=== PATIENT | female | born 1955 | race Caucasian/White ===

== ENCOUNTER 2018-03-08 12:54 | Inpatient (IN) | payer BC ==
[~2018-03-08] VITALS: Ht 167.6 cm; Wt 99.6 kg
[2018-03-22] VITALS (12 sets, daily range): BP systolic 112–153; BP diastolic 51–71; PULSE 56–92; TEMP 97.4–98.6
[2018-03-22] MEDS ORDERED: VENTOLIN0.09 MG IH (08:44)
[2018-03-22] MEDS ORDERED: 00186-0372-20 IH (08:45)
[2018-03-22] MEDS ORDERED: PERCOCET 325 MG1 TA2 PO (08:46)
[2018-03-22] MEDS ORDERED: SYNTHROID 0.10.15 MG PO (08:47)
[2018-03-22] MEDS ORDERED: NEURONTIN600 MG/TAB PO (08:47)
[2018-03-22] MEDS ORDERED: UNIPHYL 400MG400 MG PO (08:49)
[2018-03-22] MEDS ORDERED: ALBUTEROL0.83 MG/ML IH (08:50)
[2018-03-22] MEDS ORDERED: LEXAPRO20 MG PO (08:52)
[2018-03-22] MEDS ORDERED: ASPIRIN E.C. 8181 MG PO (08:52)
[2018-03-23 02:00] VITALS: BP 118/58; PULSE 54; TEMP 98.3
[2018-03-23 05:04] VITALS: BP 116/65; PULSE 51; TEMP 98
[2018-03-23 06:22] LABS: HEMATOCRIT 43.3 % (37.0-47.0)
[2018-03-23 06:34] LABS: CREATININE, serum 0.92 mg/dL (0.52-1.25); POTASSIUM 4.3 mmol/L (3.4-5.0)
[2018-03-23 10:27] VITALS: BP 114/56; PULSE 54; TEMP 98.2
[2018-03-23 13:40] VITALS: BP 124/56; PULSE 56; TEMP 97.8
[2018-03-23 17:07] VITALS: BP 1323/60; PULSE 58; TEMP 97.7
[2018-03-23 21:38] VITALS: BP 122/54; PULSE 73; TEMP 98.2
[2018-03-24 01:33] VITALS: BP 126/54; PULSE 92; TEMP 97.4
[2018-03-24 05:03] VITALS: BP 107/68; PULSE 73; TEMP 98.2
[2018-03-24 09:03] VITALS: BP 129/59; PULSE 87; TEMP 100
[2018-03-24 13:28] VITALS: BP 103/59; PULSE 81; TEMP 98.6
[2018-03-24 17:25] VITALS: BP 121/69; PULSE 16; TEMP 100.5
[2018-03-24 21:35] VITALS: BP 134/54; PULSE 100; TEMP 100.6
[2018-03-25] VITALS (7 sets, daily range): BP systolic 123–140; BP diastolic 57–72; PULSE 83–101; TEMP 98.6–100.2
[2018-03-25 11:34] LABS: HEMATOCRIT 42.2 % (37.0-47.0); HEMOGLOBIN 13.8 g/dl (12.5-16.0); MEAN CELL VOLUME 92 fl (80.0-100.0); MEAN CORPUSCULAR HEMOGLOBIN 30 pg (27.0-31.0); MEAN CORPUSCULAR HGB CONC 33 g/dl (33.0-37.0); MEAN PLATELET VOLUME 10.4 fl (7.4-10.4); PLATELET COUNT 154 K/mm3 (130-400); RED BLOOD COUNT 4.61 M/mm3 (4.10-5.30); REDCELL DISTRIBUTION WIDTH-CV 15.8 % (11.5-14.5)
[2018-03-25 12:07] LABS: BAND 44 % (0-10); LYMPHOCYTE 4 % (20.0-51.0); METAMYELOCYTE 1 % (0-0); MYELOCYTE 1 % (0-0); NEUTROPHILS 48 % (42.0-75.2); PLATELET ESTIMATE NORMAL (NORMAL)
[2018-03-26 02:13] VITALS: BP 137/58; PULSE 80; TEMP 99.6
[2018-03-26 05:53] VITALS: BP 132/75; PULSE 77; TEMP 98.6
[2018-03-26 07:38] LABS: BASO % 0.1 % (0.0-2.0); EOS # 0.1 (0.0-0.7); EOS % 0.4 % (0-4.0); GRAN # 12.9 (1.4-6.5); GRAN % 86.3 % (42.2-75.2); HEMOGLOBIN 12.1 g/dl (12.5-16.0); LYMPH # 0.8 (1.2-3.4); LYMPH % 5.2 % (20.0-51.0); MEAN CELL VOLUME 91 fl (80.0-100.0); MEAN CORPUSCULAR HEMOGLOBIN 30 pg (27.0-31.0); MEAN CORPUSCULAR HGB CONC 33 g/dl (33.0-37.0); MEAN PLATELET VOLUME 11.3 fl (7.4-10.4); MONO # 1.1 (0.1-0.6); MONO % 7.6 % (1.7-9.3); PLATELET COUNT 138 K/mm3 (130-400); RED BLOOD COUNT 4.07 M/mm3 (4.10-5.30); REDCELL DISTRIBUTION WIDTH-CV 15.9 % (11.5-14.5)
[2018-03-26 07:46] LABS: CALCIUM 8.9 mg/dL (8.4-10.2); CREATININE, serum 0.8 mg/dL (0.52-1.25); POTASSIUM 3.8 mmol/L (3.4-5.0)
[2018-03-26 09:50] VITALS: BP 119/55; PULSE 87; TEMP 98.7
[2018-03-26 13:44] VITALS: BP 122/62; PULSE 82; TEMP 98.5
[2018-03-26] MEDS ORDERED: CIPRO 500MG TA500 MG PO (17:00)
[2018-03-26] MEDS ORDERED: FLAGYL500 MG PO (17:01)
[2018-03-26] MEDS ORDERED: PERCOCET 325 MG1 TA2 PO (17:02)
== END 2018-03-26 18:45 | disposition home or self-care (01) | DRG 331 ==
LOC: INPTSU 03-22 06:51 → SURG 03-22 09:30
PROVIDERS: Surgery
PROC: 0DTF4ZZ Resection of Right Large Intestine, Percutaneous Endoscopic Approach (ICD-10-PCS; principal; 2018-03-22 09:30)
DX: D12.2 Benign neoplasm of ascending colon (principal); J44.9 Chronic obstructive pulmonary disease, unspecified; F17.210 Nicotine dependence, cigarettes, uncomplicated
CPT/HCPCS: A4314; A9284; J0360; J0694; J1100; J1170; J1650; J1885; J2405; J2704; J2710; J3010; J7120; Q9967

== ENCOUNTER 2019-10-10 05:34 | Day surgery (SDC) | payer BC ==
[~2019-10-10] VITALS: Ht 170.2 cm; Wt 100.8 kg
[2019-10-10] VITALS (10 sets, daily range): BP systolic 117–153; BP diastolic 59–71; PULSE 48–60; TEMP 97.4–98.2
[~2019-10-10 05:34] MED LIST: 00186-0372-20 IH; ALBUTEROL0.83 MG/ML IH; ASPIRIN E.C. 8181 MG PO; CIPRO 500MG TA500 MG PO; FLAGYL500 MG PO; LEXAPRO20 MG PO; NEURONTIN600 MG/TAB PO; PERCOCET 325 MG1 TA2 PO; SYNTHROID 0.10.15 MG PO; UNIPHYL 400MG400 MG PO; VENTOLIN0.09 MG IH
[2019-10-10] MEDS ORDERED: NICODERM C21 MG/PATC TD (06:04)
[2019-10-10] MEDS ORDERED: 00186-0370-20 IH (06:07)
[2019-10-10 06:56] LABS: ARTERIAL BLD GAS O2 SATURATION 86.7 % (92-100); ARTERIAL BLD GAS TCO2 CT 28.1; ARTERIAL BLOOD GAS BASE EXCESS 0.3 (-2-2); ARTERIAL BLOOD GAS HCO3 26.6 meq/L (22-26); ARTERIAL BLOOD GAS PCO2 48.6 mmHg (35-45); ARTERIAL BLOOD GAS PO2 51.1 mmHg (80-100); ARTERIAL BLOOD GAS pH 7.36 (7.35-7.45)
--- NOTE | 2019-10-10 09:35 | NUR ---
returned to room per bed from PACU, awake and alert but sleepy, IV infusing per dial-a-flow at 100ml/hr, O2 on at 3L/NC, SCDs on bilaterally, abdominal dressing CD&I, denies needs at this time
--- NOTE | 2019-10-10 10:00 | NUR ---
resting in bed between checks, full assessment completed, see interventions for further info, denies pain, provided coffee per her request
--- NOTE | 2019-10-10 10:15 | NUR ---
O2 down to 2L/NC
--- NOTE | 2019-10-10 10:30 | NUR ---
continues to sleep between checks, awakens easily and denies needs
--- NOTE | 2019-10-10 11:15 | NUR ---
c/o some back discomfort and head of bed elevated for patient's comfort, denies other needs
--- NOTE | 2019-10-10 12:30 | NUR ---
remains very sleepy but awakens easily, asking for something cold to drink, will provide grape juice per her request
--- NOTE | 2019-10-10 13:35 | NUR ---
c/o some back pain and informed it is OK to turn to her side, denies other needs
--- NOTE | 2019-10-10 15:20 | NUR ---
assisted up to bathroom and voided qs, then ambulated back to bed, declines wanting anything to eat at this time
[2019-10-10] MEDS ORDERED: PERCOCET 325 MG1 TA2 PO (15:59)
--- NOTE | 2019-10-10 16:07 | NUR ---
Dr Avila was in to see patient, will plan discharge this evening, medicated with percocet 5mg 1 tab for c/os pain and in anticipation of ride home
--- NOTE | 2019-10-10 16:20 | NUR ---
discharge instructions given to patient and verbalizes understanding INT discontinued
--- NOTE | 2019-10-10 16:36 | NUR ---
discharged per WC
== END 2019-10-10 16:36 | disposition home or self-care (01) ==
LOC: SDCO 05:34 → JCC 09:35 → SDCO 16:36
PROVIDERS: Nurse Anesthetist, Certified Registered
DX: K43.2 Incisional hernia without obstruction or gangrene (principal); J44.9 Chronic obstructive pulmonary disease, unspecified; Z79.82 Long term (current) use of aspirin; Z79.899 Other long term (current) drug therapy; E03.9 Hypothyroidism, unspecified; E78.5 Hyperlipidemia, unspecified; G62.9 Polyneuropathy, unspecified; F32.9 Major depressive disorder, single episode, unspecified; Z80.1 Family history of malignant neoplasm of trachea, bronchus and lung; F17.210 Nicotine dependence, cigarettes, uncomplicated; Z90.49 Acquired absence of other specified parts of digestive tract; Z90.710 Acquired absence of both cervix and uterus; I38 Endocarditis, valve unspecified; G89.29 Other chronic pain; Z86.010 Personal history of colon polyps
CPT/HCPCS: OP; C1781; J0690; J1100; J1885; J2250; J2405; J2704; J2795; J3010; J7120

== ENCOUNTER 2024-03-28 12:14 | Day surgery (SDC) | payer MEDICARE ==
[~2024-03-28] VITALS: Ht 167.6 cm; Wt 91.8 kg
[~2024-03-28 12:14] MED LIST changes: +00186-0370-20 IH; +LR 1,000 ML IV SCH; +NICODERM C21 MG/PATC TD
[2024-03-28 13:35] VITALS: BP 148/75; PULSE 56; TEMP 98.1
[2024-03-28] MEDS ORDERED: diazePAM 10 MG TAB PO ONE (13:45)
[2024-03-28] MEDS ORDERED: fentaNYL 50 MCG/ML 2 ML VIAL ONE (14:56)
[2024-03-28] MEDS ORDERED: Lidocaine PF 2% (20 MG/ML) 5 ML VIAL ONE (14:56)
[2024-03-28] MEDS ORDERED: Lidocaine 2% (20 MG/ML) 20 ML UROJET UR ONE (15:40)
[2024-03-28] MEDS ORDERED: Iohexol 350 - 100 ML VIAL URETER-B ONE (15:40)
[2024-03-28] MEDS ORDERED: Meperidine 50 MG/ML 1 ML VIAL IV PRN (15:45)
[2024-03-28] MEDS ORDERED: fentaNYL 50 MCG/ML 1 ML SYRINGE/VIAL [PACU/SDC ONLY] IV PRN (15:45)
[2024-03-28] MEDS ORDERED: HYDROmorphone 1 MG/1 ML SYRINGE [PACU/SDC ONLY] IV PRN (15:45)
[2024-03-28] MEDS ORDERED: Ondansetron 4 MG/2 ML VIAL IV PRN ×2 (15:45→16:15)
[2024-03-28] MEDS ORDERED: droPERidol 2.5 MG/ML 2 ML VIAL IV PRN (15:45)
[2024-03-28] MEDS ORDERED: Morphine 2 MG/1 ML VIAL [PACU/SDC ONLY] IV PRN (15:45)
[2024-03-28] MEDS ORDERED: Ondansetron 4 MG/2 ML VIAL ONE (15:46)
[2024-03-28] MEDS ORDERED: dexAMETHasone 10 MG/ML VIAL ONE (15:46)
[2024-03-28] MEDS ORDERED: Acetaminophen 325 MG TAB PO PRN (16:15)
[2024-03-28] MEDS ORDERED: Naloxone 0.4 MG/ML VIAL IV PRN (16:15)
[2024-03-28] MEDS ORDERED: Hyoscyamine 0.125 MG Sublingual TAB SL PRN (16:15)
[2024-03-28] MEDS ORDERED: Home oxyCODONE/Acetaminophen 5/325 MG #4 TAB/PACK PO ONE (16:45)
[2024-03-28 17:00] VITALS: BP 155/64; PULSE 56; TEMP 97.5
[2024-03-28] MEDS ORDERED: Acetaminophen 500 MG TAB PO SCH (17:13)
[2024-03-28 17:15] VITALS: BP 159/50; PULSE 56
[2024-03-28 17:30] VITALS: BP 150/66; PULSE 60
--- NOTE | 2024-03-28 17:50 | NUR ---
1700 RETURNS TO ROOM 7 PER CART WITH HOB ELEVATED 40 DEGREES. AWAKE, ALERT. O2 AT 4L/NC PREOP. VITAL SIGNS OBTAINED. REPORTS MILD "ACHE" LEFT FLANK AREA. REPOSITIONS ON CART. CALL LIGHT AT SIDE. FRIEND IN ROOM. 1710 SITS ON EDGE OF CART, THEN AMBULATES TO BATHROOM WITH STANDBY ASSIST. IMMEDIATELY VOIDS LARGE AMOUNT. URINE LIGHT PINK. REPORTS INCREASED COMFORT AFTER VOID. 1715 PER VERBAL ORDER, HOME PACK PERCOCET 5/325 TO BE 1 TAB EVERY 4-6 HOURS NEEDED FOR PAIN.
--- NOTE | 2024-03-28 17:50 | NUR ---
1725 DISCHARGE INSTRUCTIONS REVIEWED. PATIENT AND FRIEND VERBALIZE UNDERSTANDING. COPY PROVIDED IN DISCHARGE FOLDER 1730 PATIENT AMBULATES TO BATHROOM WITH STANDBY ASSIST, THEN SITS IN CHAIR IN ROOM. DRESSES SELF. O2 AT 4L/NC AT HOME 1740 PATIENT PROVIDED WITH HOME PACK PERCOCET 5/325 MG 4 TABS. PATIENT INSTRUCTED ON USE; 1 TAB EVERY 4-6 HOURS NEEDED FOR PAIN OBSERVED PATIENT PLACE BOTTLE WITH TABS IN PERSONAL BELONGING BAG WITH PURSE
== END 2024-03-28 17:50 | disposition home or self-care (01) ==
LOC: SDCO 12:14
DX: N20.1 Calculus of ureter (principal); Z87.891 Personal history of nicotine dependence
CPT/HCPCS: C1769; C2617; J0690; J1100; J2405; J2704; J3010; J7120; Q9967